=== PATIENT | female | born 1945 | race Caucasian/White ===

== ENCOUNTER 2018-06-09 22:30 | Inpatient (IN) | payer OTHER, BC ==
[~2018-06-09] VITALS: Ht 162.6 cm; Wt 74.8 kg
--- NOTE | ~2018-06-09 | EKG ---
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 [place]: [place] : 1945 Requested By: Casie Andrea Order Number: [id number] MD: Bernard Almaraz Measurements Intervals [place] Rate: 72 P: 79 AR: 134 QRS: 57 QRSD: 115 T: 66 QT: 412 QTc: 451 Interpretive Statements Sinus rhythm Probable left atrial enlargement Nonspecific intraventricular conduction delay Borderline ST depression, diffuse leads No previous ECG available for comparison Electronically Signed On 06-10-2018 8:46:52 [employer] by Bernard Almaraz [email or web address] <ELECTRONICALLY SIGNED> By: Bernard Almaraz MD 06/10/18 0846 D: 12/2327 27 Bernard Almaraz MD /MIRTA
[2018-06-09 23:12] VITALS: BP 165/92
[2018-06-09] MEDS ORDERED: MOBIC15 MG PO (23:20)
[2018-06-09 23:29] LABS: URINE BILIRUBIN NEGATIVE (Negative); URINE BLOOD TRACE (Negative); URINE CLARITY CLEAR; URINE COLOR YELLOW; URINE GLUCOSE-RANDOM* NEGATIVE (Negative); URINE KETONES 1+ (Negative); URINE LEUKOCYTES NEGATIVE (Negative); URINE NITRITE NEGATIVE (Negative); URINE PROTEIN (DIPSTICK) NEGATIVE (Negative)
[2018-06-09] MEDS ORDERED: CRESTOR5 MG PO (23:37)
[2018-06-09 23:52] LABS: ABSOLUTE NEUTROPHILS 6.8 thou/uL (1.4-8.2); BASOPHILS 0.5 % (0.0-2.0); EOSINOPHILS 0.2 % (0.0-3.0); HEMOGLOBIN 14.2 gm/dL (12.0-15.0); LYMPHOCYTES 13.5 % (24.0-44.0); MCH 30.1 pg (26.0-34.0); MCHC 33.9 g/dL (28.0-37.0); MCV 88.6 fL (80.0-100.0); MONOCYTES 5.2 % (1.0-8.0); PLATELET COUNT 257 thou/uL (150-400); POLYS 80.6 % (36.0-66.0); RBC 4.74 mil/uL (4.20-5.00); RDW 13.2 % (10.5-14.5); WBC 8.5 thou/uL (4.0-11.0)
[2018-06-10 00:04] LABS: ANION GAP 12 mmol/L (7-16); BUN 19 mg/dL (7-18); CALCIUM 8.7 mg/dL (8.5-10.1); CHLORIDE 105 mmol/L (98-107); CO2 25 mmol/L (21-32); CREATININE 0.8 mg/dL (0.6-1.0); GLUCOSE 135 mg/dL (74-106); POTASSIUM 3.7 mmol/L (3.5-5.1); SODIUM 142 mmol/L (136-145)
[2018-06-10 00:11] LABS: ALBUMIN 3.8 g/dL (3.4-5.0); LIPASE 75 U/L (73-393); SGOT 21 U/L (15-37); SGPT 27 U/L (30-65); TOTAL BILIRUBIN 0.6 mg/dL (<0.1-1.0); TOTAL PROTEIN 7.3 g/dL (6.4-8.2); TROPONIN-I <0.06 ng/mL (<0.06)
[2018-06-10 05:25] VITALS: BP 115/57
[2018-06-10 05:30] VITALS: BP 115/57
[2018-06-10 06:06] VITALS: BP 126/68
[2018-06-10 07:50] VITALS: BP 131/67
[2018-06-10] MEDS ORDERED: PEPCID20 MG PO (13:05)
[2018-06-10] MEDS ORDERED: ZOFRAN 4 MG ORAL4 MG DISSOLVE (13:05)
[2018-06-10 16:19] VITALS: BP 131/67
== END 2018-06-10 16:49 | disposition home or self-care (01) | DRG 391 ==
LOC: ER 22:30 → EROBS 06-10 03:18 → 4W 06-10 03:18 → ENTRNSPT 06-10 16:31 → 4W 06-10 16:49
PROVIDERS: Student in an Organized Health Care Education/Training Program
DX: K52.9 Noninfective gastroenteritis and colitis, unspecified (principal); E43 Unspecified severe protein-calorie malnutrition; E78.5 Hyperlipidemia, unspecified; M19.90 Unspecified osteoarthritis, unspecified site; Z90.49 Acquired absence of other specified parts of digestive tract; Z87.81 Personal history of (healed) traumatic fracture; Z79.899 Other long term (current) drug therapy
CPT/HCPCS: 10040